=== PATIENT | male | born 1970 | race Caucasian/White ===

== ENCOUNTER 2021-09-20 09:12 | Emergency (ER) | payer OTHER ==
[~2021-09-20] VITALS: Ht 172.7 cm; Wt 79.4 kg
[~2021-09-20 09:12] MED LIST: ATI.5 PO; OMEP-303 PO
[2021-09-20 09:18] VITALS: BP 147/81
--- NOTE | 2021-09-20 09:25 | NUR ---
Patient ambulated to bed 09 with steady/even gait
--- NOTE | 2021-09-20 09:29 | NUR ---
Dr. Underwood is evaluating patient at bedside
--- NOTE | 2021-09-20 09:37 | NUR ---
PT AMBULATED TO RESTROOM FOR UA COLLECTION.
[2021-09-20] MEDS ORDERED: ALBUTEROL HFA MDI 90 MCG/ACTUATION 8 GM INH ONE (09:40)
--- NOTE | 2021-09-20 09:40 | NUR ---
50 Y/O MALE C/O CHEST PAIN 11/24 DESCRIBES TIGHTNESS NON-RADIATING X3 WEEKS. PT REPORTS BEING SICK X2.5 MONTHS AGO, WENT TO PCP AND WAS GIVEN ABX. PT WENT TO URGENT CARE X1.5 WEEK AGO, GIVEN ZPACK WITH NO RELIEF. HURTS WITH DEEP INSPIRATION. PT REPORTS FEELING PERIODS OF DIZZINESS AND STATES HE JUST DOESNT FEEL WELL. DENIES PMH ALLERGIES:AMOXICILLIN, CIPRO
--- NOTE | 2021-09-20 09:40 | NUR ---
PT AMBULATED TO ER BED 9 WITH A STEADY GAIT FROM RESTROOM.
--- NOTE | 2021-09-20 09:56 | NUR ---
RT AT PT BEDSIDE FOR BREATHING TX.
--- NOTE | 2021-09-20 10:02 | NUR ---
SANDFILL OPERATOR SURFACE AT PT BEDSIDE.
[2021-09-20 10:18] LABS: HEMATOCRIT 30.4 % (36-52); HEMOGLOBIN 9.3 g/dL (12.0-18.0); MEAN CORPUSCULAR HEMOGLOBIN 26 pg (27-31); MEAN CORPUSCULAR HGB CONC 31 g/dL (33-37); MEAN CORPUSCULAR VOLUME 86.1 fL (80-94); PLATELET COUNT (AUTO) 367 K/uL (140-450); RED BLOOD CELL COUNT(AUTO) 3.53 MIL/uL (4.20-6.10); RED CELL DISTRIBUTION WIDTH 17.7 % (11.6-13.7)
[2021-09-20 10:36] LABS: ANION GAP 10.1 (8-16); CARBON DIOXIDE 26.4 mmol/L (21-32); CREATININE 0.9 mg/dL (0.6-1.3); POTASSIUM 3.5 mmol/L (3.5-5.1)
[2021-09-20 10:37] LABS: ALBUMIN 3.4 g/dL (3.4-5.0); TOTAL BILIRUBIN 0.4 mg/dL (0.0-1.0)
[2021-09-20 10:52] LABS: WHITE BLOOD COUNT (AUTO) 252.2 K/uL (4.8-10.8)
[2021-09-20 11:01] LABS: THYROID STIMULATING HORMONE 2.83 uIU/mL (0.34-3.74)
--- NOTE | 2021-09-20 12:39 | NUR ---
RODRIGUE SWABBED AND WALKED TO LAB.
[2021-09-20] MEDS ORDERED: AZIT250T3 PO (13:27)
[2021-09-20 14:44] LABS: BLASTS, MANUAL % 27 % (0-0); EOSINOPHILS % (MANUAL) 3 % (0-4); LYMPHOCYTES % (MANUAL) 7 % (20-46); MONOCYTES % (MANUAL) 1 % (5-12); MYELOCYTES % 1 % (0-0)
--- NOTE | 2021-09-20 14:55 | NUR ---
DC PLANNING: JOLENE WAS CALLED BY ER AND ASKED TO FACILITATE TRANSFER TO [facility] FOR DX OF ACUTE LEUKEMIA, WBC'S 252. PATIENT HAS IE WITH [facility], IE RESPONSIBLE FOR ACUTE TRANSFER. JOLENE SPOKE WITH LEVY AT [facility] ([phone]), ASKED TO REFER THE PATIENT TO [facility], IF THEY CAN'T ACCEPT REFER PATIENT TO [facility]. JOLENE FAXED THE CLINICAL PACKET TO [facility] TRANSFER CENTER, PHONE [phone], FAX # [phone]. JOLENE SPOKE WITH DAHLIA AT [facility] TO CONFIRM THAT SHE RECEIVED THE REFERRAL, SHE WILL REVIEW IT AND CALL CM. Addendum: 09/20/21 at 1654 by Jessica Santiago CM DC PLANNING: PATIENT NOT YET ACCEPTED TO [facility], AUTH NUMBER GIVEN FOR [facility] ADMISSION AND [facility] TRANSPORT OF [id number]. IF THE PATIENT GOES TO ANOTHER FACILITY THE SAME AUTH NUMBER CAN BE USED. JOLENE WILL FOLLOW. Addendum: 09/20/21 at 1741 by Jessica Santiago CM DC PLANNING: JOLENE SPOKE WITH DAHLIA AT THE [facility], SHE IS WAITING FOR MD'S TO CALL HER BACK. [facility] AUTH NUMBER GIVEN TO DAHLIA, SHE WILL CALL THE CLAMPER HERE TO FINALIZE TRANSPORT ONCE PATIENT HAS A ROOM ASSIGNED. CM ENDORSED ABOVE TO THE CLAMPER. JOLENE WILL FOLLOW.
--- NOTE | 2021-09-20 15:44 | NUR ---
PT RESTING IN BED, HOB LOWERED FOR COMFORT, VSS, WILL CONTINUE TO MONITOR.
--- NOTE | 2021-09-20 19:20 | NUR ---
REPORT GIVEN TO NOHEMY.
--- NOTE | 2021-09-20 19:33 | NUR ---
Received a call from Lu, [facility] [employer] [phone], stated that pt was declined by [facility]. Lu stated that pt should go to tertiary center. Will let ER db2 dba know
--- NOTE | 2021-09-20 19:39 | NUR ---
[facility] CALLED - [phone]
--- NOTE | 2021-09-20 19:54 | NUR ---
CLINCIALS FAXED TO [facility] 1952
--- NOTE | 2021-09-20 20:23 | NUR ---
[facility] CALLED AND DENIED TRANSFER FOR DIRECT ADMIT DUE TO INPATIENT CAPACITY
--- NOTE | 2021-09-20 20:53 | NUR ---
LIAU, [facility] [place] DECLINED TRANSFER [facility] CALLED AND FAXED CLINICALS FOR POSSIBLE [place]
--- NOTE | 2021-09-20 21:49 | NUR ---
PT ACCEPTED TO [facility] AWAITING BED NUMBER. COVID RESULTS FAXED
--- NOTE | 2021-09-20 22:03 | NUR ---
COVID STATUS FAXED TO [facility]
--- NOTE | 2021-09-20 22:42 | NUR ---
Patient appears to be resting comfortably in bed- Semi kelley, speaking with family members on the phone. Respirations even and unlabored, patient denies any c/p. Safety measures are in place, patient on the monitor, and will continue to monitor patient.
--- NOTE | 2021-09-21 00:26 | NUR ---
attempted to call [facility] for report-- will call back shortly for the report.
--- NOTE | 2021-09-21 00:36 | NUR ---
Patient to be transferred to [facility]. Is being transferred due to higher level of care. Receiving facility has accepting physician and available space. ER physician has signed transfer form. Patient or responsible libertarian has agreed to transfer and signed form. Patient belongings inventoried and will be sent with patient. Copy of nursing notes, lab reports, EKG, Physicians Orders and X-rays to be sent with patient. Report called to Gabi PEREA at receiving facility. [facility] ambulance service has been called for transfer. ETA is 30mins.
--- NOTE | 2021-09-21 01:27 | NUR ---
[facility] AT BEDSIDE
[2021-09-21 01:37] VITALS: BP 123/66
--- NOTE | 2021-09-21 01:37 | NUR ---
[facility] TRANSPORTED PT TO [facility] AT THIS TIME
== END 2021-09-21 01:37 | disposition designated cancer center or children's hospital (05) ==
LOC: MED 09:12
DX: C92.00 Acute myeloblastic leukemia, not having achieved remission (principal); Z20.822 Contact with and (suspected) exposure to COVID-19; R07.89 Other chest pain; R06.2 Wheezing; Z79.2 Long term (current) use of antibiotics; Z79.899 Other long term (current) drug therapy; Z88.0 Allergy status to penicillin; Z88.1 Allergy status to other antibiotic agents; Z88.6 Allergy status to analgesic agent
CPT/HCPCS: 36415; 71045; 80053; 83880; 84443; 84484; 85025; 87426; 93005; 94664; 99285; Q0092